=== PATIENT | female | born 1985 | race Caucasian/White ===

== ENCOUNTER 2024-08-29 09:32 | Outpatient (CLI) | payer BC, SELFPAY ==
--- NOTE | ~2024-08-29 | XR_ITS ---
Exam: Abdomen 1V HISTORY: Bilateral kidney stones COMPARISON: None. TECHNIQUE: Supine images of the abdomen FINDINGS: Bowel gas pattern is non-obstructive. There is no free air or deep sulci. Fecal stasis is detected within the colon, precluding adequate evaluation of underlying renal shadows . Lung bases are unremarkable. Bones and remaining soft tissues are unremarkable. IMPRESSION: Nonspecific, nonobstructive bowel gas pattern with fecal stasis projecting over the bilateral kidneys . Reviewed, dictated and finalized at location A. IMPRESSION: Nonspecific, nonobstructive bowel gas pattern with fecal stasis projecting over the bilateral kidneys.
== END 2024-08-29 09:33 | disposition home or self-care (01) ==
PROVIDERS: PCP Urology; Visit Provider Urology
DX: N20.0 Calculus of kidney (principal)
CPT/HCPCS: 74018

== ENCOUNTER 2024-09-15 00:22 | Day surgery (SDC) | payer BC, SELFPAY ==
[2024-09-05 09:31] VITALS: BMI 24.2
--- NOTE | 2024-09-05 09:36 | PC.NURSE ---
Report to the Outpatient Waiting Room, entrance under the green pavilion located off [facility], at time _0830 on date 09/15/24. Planned Procedure Time: 1030.? Time changes happen often and if your time is changed the preop area will call you the afternoon before. - You and your visitor will be asked to self-screen and do not enter if you have any COVID symptoms. Please call surgeon if you need to reschedule. - A mask is optional within the hospital at this time. Patients may have clear liquids (water, carbonated beverages, clear teas, apple juice) until 3 hours prior to surgery with a maximum of 20 ounces. - No food from midnight until time of surgery and no smoking, or chewing tobacco (or any form of nicotine). No chewing gum, candy or mints. - Infants may have breast milk until 4 hours before surgery, infant formula 6 hours prior to surgery. - Children will be allowed to drink immediately following surgery.? If applicable, please bring a bottle or sippy cup to assist with drinking. Juice, water, soda, and popsicles are readily available.? For infants on formula, please bring formula the day of surgery.? Pacifiers are allowed. Take only the following medications with a SIP of water on the morning of surgery: _NONE DO NOT STOP ANY OF YOUR OTHER PRESCRIPTION MEDICATIONS PRIOR TO SURGERY EXCEPT THE FOLLOWING Hold all vitamins and supplements for 3 days per anesthesiologist. Medications to discontinue per physician Date to take last dose Please no make-up, nail [place] citizen, hairspray, perfume, deodorant, or body powder the day of surgery.? No jewelry (including any body piercings) or valuables the day of surgery, leave them at home.? Please take a shower or bath the night before, or the morning of, surgery with an antibacterial soap.? Wear comfortable, loose fitting clothing.? Children are encouraged to wear pajamas. - Jewelry must be removed prior to entering the operating room.? Rings and piercings that are not removed may be cut off. - The hospital will not accept responsibility for valuables.? - Please leave all valuables, including medications, at home the day of surgery. If you are going home after surgery, a licensed auto [place] driver must drive you home.? - NO public transportation without another adult if you receive anesthesia. - We recommend that an adult stay with you for 24 hours following discharge. - We also recommend that you do not drive, make important decision, drink alcoholic beverages, or take any drugs that were not prescribed by your health care provider for at least 24 hours after your discharge time. For Pediatric surgeries, we recommend two adults accompany the child home. Follow any additional instructions given to you from your surgeon. Telephone instructions given to _GAMALIEL___and asked if any additional questions and then verbalized understanding. Patient advised to call surgeon office or pre surgery nurse liaison [phone] if any additional questions.
[2024-09-15] VITALS (7 sets, daily range): BP systolic 101–111; BP diastolic 61–76; PULSE 65–91; RESP 16–22; TEMP 36.3–36.8; O2SAT 97–99; BMI 26.4
--- NOTE | ~2024-09-15 | XR_ITS ---
Exam: Abdomen 1V HISTORY: ESWL COMPARISON: 08/29/2024 oh TECHNIQUE: Supine images of the abdomen FINDINGS: Bowel gas pattern is non-obstructive. There is no free air or deep sulci. Scattered 2 and 3 mm calculi projecting over the bilateral kidneys. Fecal stasis within the cecum and descending colon, precluding adequate evaluation. Lung bases are unremarkable. Bones and soft tissues are unremarkable. IMPRESSION: Nonspecific, nonobstructive bowel gas pattern. Scattered 2 and 3 mm calculi projecting over the bilateral kidneys with detailed evaluation limited s econdary to overlying fecal stasis. Reviewed, dictated and finalized at location A. IMPRESSION: Nonspecific, nonobstructive bowel gas pattern. Scattered 2 and 3 mm calculi projecting over the bilateral kidneys with detaile d evaluation limited secondary to overlying fecal stasis.
--- OUTSIDE RECORDS SUMMARY | 2024-09-15 00:25 | XMS_ITS | Data Portability ---
Author Organization [employer] , [facility] Address [address] [place] [address] Assessment No assessment recorded. Plan of Treatment Reminders Order Date Submit Date Provider Last Modified By Organization Details Last Modified Time Details Appointments None record ed. Lab None record ed. Referral None record ed. Procedures None record ed. Surgeries None record ed. Imaging None record ed. Medication Orders None record ed. Patient TargetsNo targets recorded. Patient Instructions Encounter Date Encounter Id Patient Instructions Last Modified By Organization Details Last Modified Time 12/10/2022 [id number] A healthy lifestyle: care instructions [email or web address] Not available 12/10/2022 15:30:14 substance use disorder: care instructions [email or web address] Not available 12/10/2022 15:30:14 tobacco cessation [email or web address] Not availab le 12/10/2022 15:30:14 Following the [employer] Food Guide: Care Instructions [email or web address] Not available 12/10/2022 15:30:14 exercise program : getting started [email or web address] Not available 12/10/2022 15:30:14 Reason for Referral None Reported. Problems No Known Problems Procedures Surgical History Date Name Laterality Status Provider Name and Address Organization Details Recorded Time 11/25/2020 Date of Last Pap Smear completed Maria L Burton [employer] [facility] 12/08/2022 16:57:47 Imaging Results None recorded. Procedure Notes None recorded. Medical Equipment None Reported. Allergies Allergen ID Allergen Name Allergen Category Reaction Reaction Severity Criticality Documentation Date Start Date Code Code System Note Provider Name and Address Organization Details Recorded Time 526300 Product containin g penicilli n (product) medicatio n Not available Not available Not available 03/21/20212017 83660 8001 SNOMED Sever ity: Moder ate; Not Available Not Available Not Available 209219 Substance with sulfonami de structure and antibacte rial mechanism of action (substanc e) medicatio n Not available Not available Not available 03/21/20212017 91620 8003 SNOMED Sever ity: Moder ate; Not Available Not Available Not Available 691295 Medicinal product containin g cephalosp guy and acting as antibacte rial agent (product) medicatio n Not available Not available Not available 03/21/20212017 16667 9009 SNOMED Sever ity: Moder ate; Not Available Not Available Not Available Medications Name Sig Start Date Stop Date Status Note LastModified by Organization Details LastModified Time Multivitamin s 2017 active Multivitamin s Allow Substitution : True Refill Denied: No Refill DateOccurred : 11/09/2017 Not Available Not Available Not Available Vitals Date Recorded Body height Body mass index (BMI) Body weight Systolic blood pressure Diastolic blood pressure Provider Name and Address Organization Details Last Updated DateTime 12/10/2022 157.48 cm 25.2 kg/m2 28294.75 g 110 mm[Hg] 72 mm[Hg] Maria L Burton [employer] [facility] 15:15:38 Social History Question Answer Notes LastModified by Organizat ion Details LastModified Time Tobacco Smoking Status Never Smoker Maria L finney, [employer] [facility] 12/10/2022 15:26:06 What Is Your Level Of Alcohol Consumption? Occasional [email or web address] Information not available 12/10/2022 How Many Years Have You Consumed Alcohol? 18 [email or web address] Information not available 12/10/2022 What Type Of Diet Are You Following? REGULAR [email or web address] Information not available 12/10/2022 Do You Or Have You Ever Used E-cigarettes Or Vape? Never Used Electronic Cigarettes [email or web address] Information not available 12/10/2022 How Many Children Do You Have? 2 [email or web address] Information not available 12/10/2022 What Is Your Relationship Status? [email or web address] Information not available 12/08/2022 Are You Sexually Active? Yes [email or web address] Information not available 12/08/2022 Sex: Unknown Functional Status Question Answer Note LastModified by Organization D etails LastModified Time What is your exercise level? Moderate [email or web address] Information not available 12/10/2022 Mental Status None recorded. Family History Relationship Description Onset Age of this Age Resolved Age Notes LastModified by Organization Details LastModified Time Father Renal cell carcinoma Not available 12/10 15:25:59 Father Malignant neoplastic disease [email or web address] Not available 12/10 15:25:59 Father Hypertensive disorder [email or web address] Not available 12/10 15:25:59 Maternal Grandmother Cerebrovascu lar accident [email or web address] Not available 15:25:59 Medical History Condition Response High Blood Pressure N Cytomegalovirus N Hyperthyroidism N MRSA N Blood Transfusion N Depression N Incontinence N Anxiety Disorder N Autoimmune disease N Arthritis N Polycystic Ovarian Syndrome N Hematuria N Varicosities N Stroke N Seasonal allergies N Crohn's Disease N Alzheimer's/Dementia N COPD/Emphysema N History of Abnormal Pap N Fibromyalgia N Kidney Infection N Kidney Disease N Gallbladder disease N Von Willebrand disease N Eating Disorder N Diabetes Mellitus (non-insulin dependent ) N Ovarian Problems N Frequent Urinary Tract infections N Osteopenia N GERD (reflux) N Diabetes (insulin dependent) N Heart Attack N Asthma N Endometrial Cancer N Hepatitis N Pulmonary Embolism N RPR N Chicken Pox N Other Cancer N Colon Cancer N Herpes (HSV) N Breast Cancer N Lung Cancer N Hypothyroidism N Panic Attacks N Neurological Disorder N Deep Vein Thrombosis N Shingles N Tuberculosis/Positive PPD N Cervical Cancer N Chlamydia N Endometriosis N HPV/Genital Warts N IBS (Irritable Bowel Syndrome) N High Cholesterol N Liver Disease N Ulcer N HIV N Sickle Cell Disease/Trait N ADD/ADHD N Anemia N Multiple Sclerosis N Gonorrhea N Headaches/migraines N Ovarian Cancer N Seizures/Epilepsy N Fibroids N Lupus N Rubella N Blood Clotting Disorder N Bipolar Disorder N Diabetes Mellitus (during ) N Ulcerative Colitis N Heart Disease N Osteoporosis N Gynecological History Statement/Question Response Flow Moderate Frequency of Cycle (Q days) 28 Date of LMP 11/25/2022 Date of Last Pap Smear 11/25/2020 Duration of Flow (days) 6 Most Recent Mammogram Current Control Method Partner Vas ectomy Age at Menarche 10 Obstetrics History GPAL:G 2 P 2 0 0 2 Type Value Full Term 2 Living 2 Total 2 Past Encounters Encounter ID Performer Location Encounter Start Date Encounter Closed Date Diagnosis/Indication Diagnosis SNOMED-CT Code Diagnosis ICD10 Code Diagnosis Note [id number] LASHONDA Briones [facility] [address] [place] [address] 12/10/2022 15:12:36 12/10/2022 15:36:54 Gynecologic examination 59403487 Z01.419 37y.o. here for annual exam- Pap 11/25/20 Neg/HPV cotesting Discussed natural course of HPV infection, ASCCP guidelines . - Mammo at age 38, no increased risk -diet and exercise reviewed - RTO for annual or PRN Depression screening 171 340848 Z13.31 PHQ9: Negative. Pt educated on normal scoring. No further management needed. Health Concerns Section Related Observation LastModified by Organization Detai ls LastModified Time None Recorded Concern Status LastModified by Organization Details LastModified Time None Recorded Advance Directives Directive None Recorded Payers Encounter Date Sequence Insurance Name Policy Number Policy Noel Covered Member ID Noel Member ID Guarantor Name 12/10/2022 1 [place] [id number] Gerald Pearce [id number] Yola Pearce Notes Date Note Type Note Provider Name and Address Organization Details Recorded Time 12/10/2022 text/html Annual GYNReport ed bypatient.Menstrua l cycle:Normal menses Urinary symptoms:No hematuria; No incontinence Vulva:No genital lesion Vagina:Normal vaginal discharge Breast:No breast pain; No breast lump; No nipple discharge Sexual complaints:No sexual complaints; No pain during intercourse; Normal libido Menopausal Symptoms:No menopausal symptoms; Normal vaginal lubrication Psychological symptoms:No depression; No anxiety; No PMDD Yola is here for her AEXHer partner has had a vasectomyHer last pap was 11/25/20 Neg/HPV Neg LASHONDA Briones [address] [facility], [place], [address], [facility] [employer] [facility] 12/10/2022 15:42:58 OBGyn Episode No OBEpisode recorded.
--- OUTSIDE RECORDS SUMMARY | 2024-09-15 00:25 | XMS_ITS | Data Portability ---
Author Organization [place] - [facility] Address [address] [place] [id number] Care Team Providers Care Data Processing Operator Name Role Phone KATERINE, IZABEL Primary Care Provider MAEGAN OROZCO Websphere Consultant DIANN ALSTON Urologist Assessment No assessment recorded. Plan of Treatment Reminders Order Date Submit Date Provider Last Modified By Organization Details Last Modified Time Details Appointments None recorded. Lab hepatitis panel (A+B+C), acute, serum 2024 025 [facility], [address] [place] [address], [id number], 10:14:21 lipid panel, serum 2024 025 [facility], [address] [place] [address], [id number], 11:07:21 CBC w/ auto diff 2024 025 [facility], [address] [place] [address], [id number], 09:27:53 CMP, serum or plasma 2024 025 [facility], [address] [place] [address], [id number], 10:55:13 Referral None recorded. Procedures None recorded. Surgeries None recorded. Imaging MAMMO, screening, bilateral 2024 025 [facility], [address] [place] [address] [address], [place], [address], 09:26:43 US, abdomen, complete 2024 025 [email or web address], [address], [address], [place], [address], 14:55:29 Medication Orders None recorded. Patient TargetsNo targets recorded. Patient InstructionsNo instructions recorded. Reason for Referral None Reported. Results Created Date Observation Date Name Description Value Unit Range Abnormal Flag Note LastModifiedBy Organization Detail LastModifiedTime 09/08/1909/07/2024 CBC WITH AUTOM ATED DIFF WBC 6.0 10 4.0-10 .0 Not Available [facility] [address] [place] [address], [id number], 09/07/2024 09:27:52 09/08/1909/07/2024 CBC WITH AUTOM ATED DIFF RBC 4.55 10 3.90-5 .22 Not Available [facility] [address] [place] [address], [id number], 09/07/2024 09:27:52 09/08/1909/07/2024 CBC WITH AUTOM ATED DIFF HGB 13.3 g/dL 11.2-1 5.7 Not Available [facility] [address] [place] [address], [id number], 09/07/2024 09:27:52 09/08/1909/07/2024 CBC WITH AUTOM ATED DIFF HCT 41.9 % 34.1-4 4.9 Not Available [facility] [address] [place] [address], [id number], 09/07/2024 09:27:52 09/08/1909/07/2024 CBC WITH AUTOM ATED DIFF MCV 92.1 fL 82.0-9 9.0 Not Available [facility] [address] [place] [address], [id number], 09/07/2024 09:27:52 09/08/1909/07/2024 CBC WITH AUTOM ATED DIFF MCH 29.2 pg 29.0-3 4.5 Not Available [facility] [address] [place] [address], [id number], 09/07/2024 09:27:52 09/08/19 25 09/07/2024 CBC WITH AUTOM ATED DIFF MCHC 31.7 g/dL 32.5-3 5.5 low Not Available [facility] [address] [place] [address], [id number], 09/07/2024 09:27:52 09/08/19 25 09/07/2024 CBC WITH AUTOM ATED DIFF RDW 12.9 11.5-1 4.5 Not Available [facility] [address] [place] [address], [id number], 09/07/2024 09:27:52 09/08/19 25 09/07/2024 CBC WITH AUTOM ATED DIFF platelet 361 10 180-37 0 Not Available [facility] [address] [place] [address], [id number], 09/07/2024 09:27:52 09/08/19 25 09/07/2024 CBC WITH AUTOM ATED DIFF MPV 9.60 fL 9.0-12 .4 Not Available [facility] [address] [place] [address], [id number], 09/07/2024 09:27:52 09/08/1909/07/2024 CBC WITH AUTOM ATED DIFF michael% 66.6 % 34.0-7 1.1 Not Available [facility] [address] [place] [address], [id number], 09/07/2024 09:27:52 09/08/19 25 09/07/2024 CBC WITH AUTOM ATED DIFF lym% 21.4 % 19-52 Not Available [facility] [address] [place] [address], [id number], 09/07/2024 09:27:52 09/08/19 25 09/07/2024 CBC WITH AUTOM ATED DIFF mon% 7.50 % 5-13 Not Available [facility] [address] [place] [address], [address], 09/07/2024 09:27:52 09/08/1909/07/2024 CBC WITH AUTOM ATED DIFF eos% 3.50 % 0-6 Not Available [address], [address], 09/07/2024 09:27:52 09/08/19 25 09/07/2024 CBC WITH AUTOM ATED DIFF bas% 0.80 % 0-2 Not Available [address], [address], 09/07/2024 09:27:52 09/08/1909/07/2024 CBC WITH AUTOM ATED DIFF Ig% 0.2 0-1.0 Not Available [address], [address], 09/07/2024 09:27:52 09/08/1909/07/2024 CBC WITH AUTOM ATED DIFF michael# 4.01 10 1.5-7 Not Available [address], [address], 09/07/2024 09:27:52 09/08/1909/07/2024 CBC WITH AUTOM ATED DIFF lym# 1.3 10 1.18-4 .00 Not Available [address], [address], 09/07/2024 09:27:52 09/08/1909/07/2024 CBC WITH AUTOM ATED DIFF mon# 0.5 10 0.00-0 .90 Not Available [address], [address], 09/07/2024 09:27:52 09/08/1909/07/2024 CBC WITH AUTOM ATED DIFF eos# 0.2 10 0.00-0 .60 Not Available [facility] [address] [place] [address], [id number], 09/07/2024 09:27:52 09/08/1909/07/2024 CBC WITH AUTOM ATED DIFF bas# 0.1 10 0.00-0 .10 Not Available [address], [address], 09/07/2024 09:27:52 09/08/1909/07/2024 CBC WITH AUTOM ATED DIFF Ig# 0.01 0-0.05 Not Available [address], [address], 09/07/2024 09:27:52 09/08/1909/07/2024 PTT APTT 25.6 secs 24.0-3 2.80 Not Available [address], [address], 09/07/2024 09:45:55 09/08/1909/07/2024 PROTI ME protime (PT) 9.8 secs 9.0-11 .5 Not Available [address], [address], 09/07/2024 09:45:56 09/08/1909/07/2024 PROTI ME INR 1.0 MICHELLE L RANGE FOR INR < OR = TO 1.0 (BRIAN ENTS NOT ON ANTIC OAGUL ANT THERA PY). INR THERA PEUTI C RANGE 2.0 - 3.0 PREVE NTION AND TREAT MENT OF DVT 2.5 - 3.5 PREVE NTION OF RECUR RENT [place], OR POST CARDI AC VALVE REPLA CEMEN T. Not Available [address], [address], 09/07/2024 09:45:56 09/08/1909/07/2024 LIPID PNL cholesterol 197 mg/dL 120-20 0 Not Available [address], [address], 09/07/2024 10:55:06 09/08/19 25 09/07/2024 LIPID PNL triglyceride s 108 mg/dL 0-150. 0 Not Available [facility] [address] [place] [address], [address], 09/07/2024 10:55:06 09/08/19 25 09/07/2024 LIPID PNL HDL cholesterol 86 mg/dL 40-60 high Not Available [facility] [address] [place] [address], [id number], 09/07/2024 10:55:06 09/08/19 25 09/07/2024 LIPID PNL LDL 89.4 mg/dL 0-130 Not Available [facility] [address] [place] [address], [address], 09/07/2024 10:55:06 09/08/19 25 09/07/2024 COMP METAB OLIC PNL glucose 97 mg/dL 74-100 Not Available [facility] [address] [place] [address], [address], 09/07/2024 10:55:13 09/08/19 25 09/07/2024 COMP METAB OLIC PNL BUN 18 mg/dL 7-17 high Not Available [facility] [address] [place] [address], [address], 09/07/2024 10:55:13 09/08/19 25 09/07/2024 COMP METAB OLIC PNL sodium 137 mmol/ L 136-14 5 Not Available [facility] [address] [place] [address], [address], 09/07/2024 10:55:13 09/08/19 25 09/07/2024 COMP METAB OLIC PNL K 4.4 mmol/ L 3.5-5. 1 Not Available [facility] [address] [place] [address], [address], 09/07/2024 10:55:13 09/08/19 25 09/07/2024 COMP METAB OLIC PNL chloride 102 mmol/ L 98-107 Not Available [facility] [address], [place], [address], 09/07/2024 10:55:13 09/08/19 25 09/07/2024 COMP METAB OLIC PNL tot CO2 27 mmol/ L 22-30 Not Available [facility] [address] [place] [address], [place], [address], 09/07/2024 10:55:13 09/08/19 25 09/07/2024 COMP METAB OLIC PNL calcium 9.6 mg/dL 8.6-10 .3 Not Available [facility] [address] [place] [address], [place], [address], 09/07/2024 10:55:13 09/08/19 25 09/07/2024 COMP METAB OLIC PNL creatinine 0.9 mg/dL 0.52-1 .04 Not Available [facility] [address] [place] [address], [place], [address], 09/07/2024 10:55:13 09/08/19 25 09/07/2024 COMP METAB OLIC PNL alkaline phos 48 U/L 38-126 Not Available [facility] [address] [place] [address], [place], [address], 09/07/2024 10:55:13 09/08/19 25 09/07/2024 COMP METAB OLIC PNL AST (SGOT) 26 U/L 14-36 Not Available [facility] [address] [place] [address], [place], [address], 09/07/2024 10:55:13 09/08/19 25 09/07/2024 COMP METAB OLIC PNL albumin 4.9 g/dL 3.3-5. 0 Not Available [facility] [address] [place] [address], [place], [address], 09/07/2024 10:55:13 09/08/19 25 09/07/2024 COMP METAB OLIC PNL globulin 3.3 2.0-4. 8 Not Available [facility] [address] [place] [address], [place], [address], 09/07/2024 10:55:13 09/08/19 25 09/07/2024 COMP METAB OLIC PNL total protein 8.2 g/dL 6.3-8. 2 Not Available [facility] [address] [place] [address], [address], 09/07/2024 10:55:13 09/08/19 25 09/07/2024 COMP METAB OLIC PNL A/G ratio 1.5 0.7-3. 5 Not Available [facility] [address] [place] [address], [address], 09/07/2024 10:55:13 09/08/19 25 09/07/2024 COMP METAB OLIC PNL ALT (SGPT) 16 U/L 0-35 Not Available [facility] [address] [place] [address], [address], 09/07/2024 10:55:13 09/08/19 25 09/07/2024 COMP METAB OLIC PNL total bilirubin 0.5 mg/dL 0.2-1. 3 Not Available [facility] [address] [place] [address], 89[address], 09/07/2024 10:55:13 09/08/19 25 09/07/2024 COMP METAB OLIC PNL GFR >60 60- Refer ence Range : [place] ge GFR Healt hy Adult : >60 mL/mi n/1.7 3 m2 Chron ic Kidne y Disea se: 15-60 mL/mi n/1.7 3 m2 Kidne y Failu re: <15/m L/min /1.73 m2 www.n iddk. nih.g ov MDRD study equat ion hasn' t been valid ated in child tim <18 yrs of age, pregn ant women , the elder ly >85 yrs of age, or in some racia l or ethni c subgr oups, suc as Hispa nics. Outsi de the valid ated bipin eters , estim ated GFR is less accur ate requi ring clini larry judgm ent on a case by case basis . Clini larry inter preta tion for other races and ages must be made by the clini roldan . Futhe rmore , any of th e limit ation s with the use of serum creat inine relat ed to nutri ignacio l statu s o r medic ation usage hasn' t accou nted for the MDRD Study equat ion. For perso ns < 18 yrs of age, a pedia tric GFR calcu lator can be locat ed on the [facility] websi te: https ://[place] w.tia aroray.o rg/pr ofess ional s/kdo qi/gf r_cal culat or Not Available [facility] [address] [place] [address], [id number], 09/07/2024 10:55:13 09/08/1909/07/2024 COMP METAB OLIC PNL agap 8.2 mmol/ L 5.0-19 .0 Not Available [facility] [address] [place] [address], [address], 09/07/2024 10:55:13 09/08/19 25 09/08/2024 PARAT HYROI D HORMO NE (PTH) INT PTH, intact 27 pg/mL 15-65 Not Available [facility] [address] [place] [address], [address], 09/08/2024 10:11:32 Result Notes None recorded. Problems Name Problem SNOMED Code Status Onset Date Resolution Date Notes Provider Name and Address Organization Details Recorded Time Hepatomegal y 36741396 Active 2024 FRANCHESCA SIERRA [address] [place], [address], [facility] 5 09:22:17 Recurrent kidney stone 4569260048334 102 Active 2024 FRANCHESCA SIERRA [address] [place], [address], [facility] 5 09:27:41 Problem Notes None recorded. Medical Equipment None Reported. Allergies No known drug allergies Medications Name Sig Start Date Stop Date Status Note LastModified by Organization Details LastModified Time azithromyci n 250 mg tablet TAKE 2 TABLETS BY MOUTH TODAY, THEN TAKE 1 TABLET DAILY FOR 4 DAYS DIRECTED 09/06 completed Not Available Not Available Not Available benzonatate 200 mg capsule TAKE 1 ORAL CAPSULE 3 TIMES A DAY NEEDED FOR COUGH 09/06 completed Not Available Not Available Not Available hydrocodone 5 mg-acetamin ophen 325 mg tablet TAKE 1-2 TABLETS BY MOUTH EVERY 6 HOURS NEEDED 09/06 completed Not Available Not Available Not Available ondansetron HCl 4 mg tablet TAKE 1 TABLET BY MOUTH EVERY 4 HOURS NEEDED 09/06 completed Not Available Not Available Not Available ciprofloxac in 500 mg tablet TAKE 1 TABLET BY MOUTH EVERY 12 HOURS FOR 7 DAYS 09/06 completed Not Available Not Available Not Available ketorolac 10 mg tablet TAKE 1 TABLET BY MOUTH EVERY 6 HOURS NEEDED 09/06 completed Not Available Not Available Not Available tamsulosin 0.4 mg capsule TAKE 1 CAPSULE BY MOUTH EVERY DAY 1/2 HOUR FOLLOWING THE SAME MEAL EACH DAY 09/06 completed Not Available Not Available Not Available ondansetron 4 mg disintegrat ing tablet DISSOLVE ONE TABLET BY MOUTH EVERY 8 HOURS NEEDED FOR NAUSEA/VO MITTING 09/06 completed Not Available Not Available Not Available Vitals Date Recorded Body weight Body mass index (BMI) Body height Body temperature Heart rate Oxygen saturation Oxygen saturation in Arterial blood by Pulse oximetry Systolic blood pressure Diastolic blood pressure Provider Name and Address Organization Details Last Updated DateTime 86137.2 6 g 26.4 kg/m2 160.02 cm 97.3 [degF] 76 /min 98 % 98 % 110 mm[Hg] 70 mm[Hg] Janet Piper [facility] 09:09:12 Social History Question Answer Notes LastModified by Organizat ion Details LastModified Time Tobacco Smoking Status Never Smoker Janet Piper [facility] 09/06/2024 09:10:23 What Is Your Level Of Alcohol Consumption? Occasional Information not available 09/06/2024 What Is Your Level Of Caffeine Consumption? Moderate Information not available 09/06/2024 In The 14 Days Before Symptom Onset, Have You Had Close Contact With A Laboratory-confirm ed COVID-19 While That Case Was Ill? No Information n ot available 09/06/2024 In The 14 Days Before Symptom Onset, Have You Had Close Contact With A Person Who Is Under Investigation For COVID-19 While That Person Was Ill? No Information not available 09/06/2024 Are You Currently Employed? Yes Information not available 09/06/2024 What Type Of Diet Are You Following? REGULAR Information n ot available 09/06/2024 What Is The Fluoride Status Of Your Home? Unknown Information not available 09/06/2024 Do You Use Insect Repellent Routinely? Yes Information not available 09/06/2024 What Was The Date Of Your Most Recent Tobacco Screening? 09/06/2024 Information not available 09/06/2024 Have You Ever Been Counseled For Unhealthy Alcohol Use? No Information not available 09/06/2024 Do You Have Any Pets? Yes Information not available 09/06/2024 What Is Your Relationship Status? Information not available 09/06/2024 Do You Have Smoke And Carbon Monoxide Detectors In Your Home? Yes Information not available 09/06/2024 Are You Passively Exposed To Smoke? No Information no t available 09/06/2024 Are There Any Smokers In Your House? No Information not available 09/06/2024 Do You Participate In Social Media? Yes Information not available 09/06/2024 Do You Use Any Illicit Or Recreational Drugs? No Information not available 09/06/2024 Do You Use Sunscreen Routinely? Yes Information not available 09/06/2024 Has Tobacco Cessation Counseling Been Provided? No Information not available 09/06/2024 Have You Recently Traveled Abroad? No Information not available 09/06/2024 Do You Have Any Dietary Restrictions? No Information not available 09/06/2024 Do You Or Have You Ever Used Any Other Forms Of Tobacco Or Nicotine? No Information not available 09/06/2024 How Many Days In The Past Year Have You Consumed 4 Or More Drinks? 0 [email or web address] Information not available 09/06/2024 Sex: Unknown Functional Status Question Answer Note LastModified by Organizat ion Details LastModified Time What is your exercise level? Occasional Information not available 09/06/2024 Mental Status None recorded. Family History Relationship Description Onset Age of this Age Resolved Age Notes LastModified by Organization Details LastModified Time Father Malignant tumor of kidney Not available 01/2025 09:10:01 Medical History No medical history recorded. Gynecological History Statement/Question Response Menses Monthly Y Current Control Method None Date of Last Mammogram Date of LMP 08/26/2024 Obstetrics History GPAL:G 2 P 0 0 0 0 Immunizations Vaccine Type Date Status Note Provider Nam e and Address Organization Details Recorded Time Tdap 03/15/2012 completed FRANCHESCA SIERRA [facility] [place], [address], [facility] 09/06/2024 09:25:44 Past Encounters Encounter ID Performer Location Encounter Start Date Encounter Closed Date Diagnosis/Indication Diagnosis SNOMED-CT Code Diagnosis ICD10 Code Diagnosis Note [id number] FRANCHESCA SIERRA [facility] [address] [address] 09/06/2024 08:49:26 09/06/2024 09:25:16 Adult health examination 952548098 Z00.00 Encouraged healthy diet and exercise. Check labs. Schedule pap with gynecologi st. Update mammogram. Declines Tdap today. Hepatomegaly 88831884 R1 6.[address] scan. Check CMP and hepatitis panel and abdominal complete US. Screening mammography 24 628145 Z12.31 Recurrent kidney stone 7574058384 539092 N20.0 Following with urology. Scheduled for lithotrips y next week and undergoing stone analysis. Body mass index 25-29 - overweight 112708102 Z68.26 Health Concerns Section Related Observation LastModified by Organization Detai ls LastModified Time None Recorded Concern Status LastModified by Organization Details LastModified Time None Recorded Advance Directives Directive None Recorded Payers Encounter Date Sequence Insurance Name Policy Number Policy Noel Covered Member ID Noel Member ID Guarantor Name 09/06/2024 1 [employer] [id number] Gerald Pearce [id number] Yola Pearce Notes Date Note Type Note Provider Name and Address Organization Details Recorded Time 09/06/2024 text/html 38 year old alexis le here today to establish care and for ER follow up. Went to ER on 08/28/24 and diagnosed with kidney stone. Did pass this stone and took it to urologist and getting tested. Off flomax and Peculiar. Has some up in kidney so having lithotripsy next Wednesday for those.Dr. [facility].She was also noted to have hepatomegaly on CT scan and would like to discuss today.No abdominal pain. No nausea, vomiting, or diarrhea. 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 Works from home for [employer].Works out ever day, HIT, cardioTries to eat pretty healthy.Has 16 year old and 12 year old. FRANCHESCA SIERRA [address], [place], [address], [place] [facility] 09/06/2024 09:28:51 OBGyn Episode No OBEpisode recorded.
--- OUTSIDE RECORDS SUMMARY | 2024-09-15 00:25 | XMS_ITS | Data Portability ---
Author Organization [facility] [place] [facility] Address [address] [facility] [address] Assessment Encounter Date Assessment Date Assessment LastModified by Organization Details LastModified Time 03/10/2016 03/10/2016 Schedule punch biopsy [email or web address] Not available 03/10/2016 11:13:37 Plan of Treatment Reminders Order Date Submit Date Provider Last Modified By Organization Details Last Modified Time Details Appointments None recorded. Lab pathology study - inferior to the right breast line 2015 016 [facility], [address] [place] [address], [address], [place], [address], 6 04:29:59 Referral None recorded. Procedures None recorded. Surgeries None recorded. Imaging None recorded. Medication Orders Singulair 10 mg tablet 2015 016 [email or web address] [facility], [address], [place], [id number], 6 14:38:34 Patient TargetsNo targets recorded. Patient Instructions Encounter Date Encounter Id Patient Instructions Last Modified By Organization Details Last Modified Time 03/10/2016 [id number] seasonal allergies: care instructions [email or web address] Not available 03/11/2016 14:38:34 Reason for Referral None Reported. Results Created Date Observation Date Name Description Value Unit Range Abnormal Flag Note LastModifiedBy Organization Detail LastModifiedTime 03/23/20 16 04/02/2016 patho logy study . COMMEN T MATER IAL SUBMI TTED: . INFER IOR TO RIGHT BREAS T LINE Not Available [facility] ([facility]) [address] [facility], [place], [address], 04/02/2016 09:25:27 03/23/20 16 04/02/2016 patho logy study . COMMKIET T CLINI MARCELO PROVI DED ICD-1 0: D23.9 Not Available [facility] ([facility]) [address] [facility], [place], [address], 04/02/2016 09:25:27 03/23/20 16 04/02/2016 patho logy study . COMMEN T CLINI ANA MARIA HISTO RY: . INFER IOR TO THE RIGHT BREAS T LINE Not Available [facility] ([facility]) [address] [facility], [place], [address], 04/02/2016 09:25:27 03/23/20 16 04/02/2016 patho logy study . COMMKIET T DIAGN OSIS: DERMA OFIBR NAINA. TMZ/2015 Not Available [facility] ([facility]) [address] [facility], [place], [address], 04/02/2016 09:25:27 03/23/20 16 04/02/2016 patho logy study . COMMKIET T FRANNIE TRAN D: . LIZ PÉREZ MD, DERMA TOPAT HOLOG IST Not Available [facility] ([facility]) [address] [facility], [place], [address], 04/02/2016 09:25:27 03/23/20 16 04/02/2016 patho logy study . PALOMA Andrea GROSS DESCR IPTIO N: . 1 CONTA INER, FORMA NOÉ ILLEScott , LABEL ED WITH PATIE NT IDENT IFICA TION. INFER IOR TO RIGHT BREAS T LINE: 1 PUNCH BIOPS Y OF ROACH-Y ELLOW SKIN MEASU RING 0.4 X 0.4 X 0.5 CM. THE SURGI ANA MARIA PEBBLES N IS INKED GREEN AND THE SPECI MEN IS BISEC TAYLOR. THE SPECI MEN IS SUBMI TTED IN CASSE TTE(S ) A. /LMS LMS/L MS Not Available [facility] ([facility]) [address] [place], [address], 04/02/2016 09:25:27 03/23/20 16 04/02/2016 patho logy study . PALOMA T PATHO LOGIS T PROVI DED ICD-1 0: D24.1 Not Available [facility] ([facility]) [address] [place], [address], 04/02/2016 09:25:27 03/23/20 16 04/02/2016 patho logy study . PALOMA Andrea CPT . [address] 1 Not Available [facility] ([facility]) [address] [place], [address], 04/02/2016 09:25:27 Result Notes None recorded. Problems Name Problem SNOMED Code Status Onset Date Resolution Date Notes Provider Name and Address Organization Details Recorded Time Dermatofibrom a 420900755 Active Anni Rashida null, [place] - [facility] 6 14:28:55 Seasonal allergy 645633874 Active Anni Rashida null, [place] - [facility] 6 14:28:55 Solitary cyst of breast 872229287 Active 2013 Not Available [facility] 7 00:43:48 Headache 97205786 Active 2011 Not Available [facility] 7 00:43:48 Acute sinusitis 64325532 Active 2015 Not Available [facility] 7 00:43:48 Notes:03/30/2012: *Denies an y medical problems Problem Notes None recorded. Procedures Surgical History Date Name Laterality Status Provider Name and Address Organization Details Recorded Time 03/20/2016 Punch Biopsy completed Anni Rashida [facility] 03/23/2016 15:53:45 Imaging Results None recorded. Procedure Notes None recorded. Medical Equipment None Reported. Allergies Allergen ID Allergen Name Allergen Category Reaction Reaction Severity Criticality Documentation Date Start Date Code Code System Note Provider Name and Address Organization Details Recorded Time 616426 Product containin g penicilli n (product) medicatio n hives Not available Not available 04/06/20172011 70783 8001 SNOMED React ion: hives ; Not Available Not Available Not Available 51970 penicilli n V Not available Not available Not available Not available 03/10/2016 7984 RxNorm Not Available Not Available Not Available 96131 Ceclor medicatio n Not available Not available Not available 03/10/2016 95417 5 RxNorm Not Available Not Available Not Available 63488 Substance with sulfonami de structure and antibacte rial mechanism of action (substanc e) medicatio n Not available Not available Not available 03/10/2016 11314 8003 SNOMED Not Available Not Available Not Available Medications Name Sig Start Date Stop Date Status Note LastModified by Organization Details LastModified Time azithromyci n 250 mg tablet active Not Available Not Available Not Available Cipro 500 mg tablet Cipro 500 mg tablet 1 Tablet(s) PO BID 08/20 completed Not Available Not Available Not Available montelukast 10 mg tablet Take 1 tablet every day by oral route for 30 days. active Not Available Not Available No t Available ibuprofen 600 mg tablet active Not Available Not Available Not Available Tessalon 200 mg capsule Tessalon 200 mg capsule 1 Capsule(s ) PO QID as needed 2015 active Not Available Not Available Not Avai lable Vitals Date Recorded Body height Body weight Body mass index (BMI) Systolic blood pressure Diastolic blood pressure Provider Name and Address Organization Details Last Updated DateTime 03/10/2016 161.29 cm 25716.96 0412 g 23.8 kg/m2 130 mm[Hg] 80 mm[Hg] Leah Heraclio [facility] 6 10:56:19 Date Recorded Body height Body weight Body mass index (BMI) Systolic blood pressure Diastolic blood pressure Provider Name and Address Organization Details Last Updated DateTime 03/20/2016 161.29 cm 58743.15 g 23.9 kg/m2 108 mm[Hg] 68 mm[Hg] Anni Field [place] - [facility] 6 14:26:15 Social History None recorded. Functional Status None recorded. Mental Status None recorded. Family History Nothing Reported. Medical History Condition Response Coronary Artery Disease N Other N Atrial Fibrillation N High Blood Pressure N Thyroid Problems N Kidney or Bladder Problems N Depression N COPD N Blood Clots N GI Problems N Skin Problems N Anemia N Heart Attack ([place]) N Diabetes N Anxiety Disorder N Muscle, Joint, or Bone Problems N Seizures/Epilepsy N Acid Reflux (GERD) N Cancer N Stroke N Allergies N Asthma N High Cholesterol N Hepatitis N Liver Disease N Headaches N Osteoporosis N Heart Failure N Gynecological HistoryNo gynecological history recorded. Obstetrics History GPAL:G 0 P 0 0 0 0 Immunizations Vaccine Type Date Status Note Provider Nam e and Address Organization Details Recorded Time Influenza, split virus, quadrivalent, preservative 9 completed NEVILLE Clark, [facility] 03/01/2019 12:49:21 Influenza, split virus, quadrivalent, PF 6 completed Anni finney [place] - [facility] 03/25/2016 14:29:24 Td (adult), 2 Lf tetanus toxoid, preservative free, adsorbed 8 completed Not Available [facility] 04/06/2017 10:17:31 Influenza, split virus, trivalent, preservative 5 completed Not Available [facility] 07/01/2019 02:11:45 Past Encounters Encounter ID Performer Location Encounter Start Date Encounter Closed Date Diagnosis/Indication Diagnosis SNOMED-CT Code Diagnosis ICD10 Code Diagnosis Note [id number] Torrey Pulliam MD [facility] [address] [place] [address] 03/10/2016 10:45:01 03/13/2016 10:30:53 Dermatofibroma 785843378 D23.9 Seasonal allergy 0847345 04 J30.2 [id number] Anni Brody [address] [facility] [place] [address] 03/20/2016 17:04:11 03/26/2016 16:35:49 Dermatofibroma 390512237 D23.9 [id number] Leah Pulliam [facility] [address] [place] [address] 03/30/2016 13:47:04 03/31/2016 20:06:28 Dermatofibroma 610831755 D23.9 Health Concerns Section Related Observation LastModified by Organization Detai ls LastModified Time None Recorded Concern Status LastModified by Organization Details LastModified Time None Recorded Advance Directives Directive None Recorded Payers Encounter Date Sequence Insurance Name Policy Number Policy Noel Covered Member ID Noel Member ID Guarantor Name 03/10/2016 1 [place] [id number] 03/20/2016 1 [place] [id number] [id number] 03/30/2016 1 [place] [id number] [id number] Notes Date Note Type Note Provider Name and Address Organization Details Recorded Time 03/10/2016 text/html Rash/Skin LesionReported bypatient.Location:c hest (under rt breast) Quality:not painful; stable Severity:mild Duration:has noted for >3 months Associated Symptoms:no fever; no nausea; no vomiting Torrey Pulliam MD Attn: [address]ing[address] [place], [address], [facility] 03/11/2016 10:59:38 03/20/2016 text/html patient presents today to have dermatofibroma removed from just right of the nipple line to the right outer Anni Oreillymis finney [place] - [facility] 03/25/2016 14:34:49 OBGyn Episode No OBEpisode recorded.
--- OUTSIDE RECORDS SUMMARY | 2024-09-15 00:25 | XMS_ITS | Clinical Summary ---
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 Name Role Phone Ash Daley MD Primary Care Provider [phone] Social History Tobacco Use Types Packs/Day Years Used Date Smoking Tobacco: Never Assessed Comments Unknown Sex and Gender Information Value Date Recorded Sex Assigned at Not on file Legal Sex Female 6:29 PM CDT Gender Identity Not on file Sexual Orientation Not on file Plan of Treatment Health Maintenance Due Date Last Done Comments Cervical Cancer Screening Pa p Smear (Age 30 to 64) Every 3 Years 1983 Annual Physical 11/04/1986 Hepatitis C 11/04/2001 DTaP, Tdap and Td Vaccines ( 1 - Tdap) 11/04/2002 Hepatitis B Vaccines (1 of 3 - 19+ 3-dose series) 11/04/2002 Cervical Cancer Screening Pa p with HPV Testing (Age 30 to 64) Every 5 Years 11/04/2013 Cervical Cancer Screening with HPV 11/04/2013 Mammogram Screening 2023 COVID-19 Vaccine (2023-2 5 season) 2024 HPV Vaccines Aged Out No longer eligi ble based on patient's age to complete this topic Meningococcal B Vaccine Aged Out No l onger eligible based on patient's age to complete this topic Meningococcal Vaccine Aged Out No kait bharath eligible based on patient's age to complete this topic Pneumococcal Vaccine: Pediat rics (0 to 5 Years) and At-Risk Patients (6 to 49 Years) Aged Out No longer eligible b ased on patient's age to complete this topic RSV Immunizations Under 20 Months Aged Out No longer eligible based on patient's age to complete this topic Care Teams Swimming Pool Cleaner Relationship Specialty Start Date End Date Ash Daley MD [facility] [place] [phone] PCP - General 03/22/12
--- NOTE | 2024-09-15 06:13 | WPDHPUPDATE1 ---
History and Physical Update Update Date/Time: 09/15/24 06:13 History and Physical has been reviewed, including an updated exam of the patient. There are NO changes in the patient's condition. Risks, benefits, and alternatives have been discussed and questions answered. Patient agrees to proceed with procedure.
--- NOTE | 2024-09-15 07:52 | P.PNAN_ITS ---
Anes - Eval Pre Procedure Procedure: Operation Date: 09/15/24 10:30 Proposed Procedures p Left Extracorporeal Shock Wave Lithotripsy - Jaime Charles MD Date/Time: 09/15/24 07:52 Pre Op Diagnosis: left kidney stones Patient Data Age: 38 Gender: F Height: 1.6 m Weight: 62 kg Allergies Allergy/AdvReac Type Severity Reaction Status Date / Time amoxicillin Allergy Intermediate Hives Verified 09/05/24 09:29 cefaclor (From Ceclor) Allergy Intermediate Hives Verified 09/05/24 09:29 Penicillins Allergy Intermediate Hives Verified 09/05/24 09:29 Home Medications ?Medication ?Instructions ?Recorded ?Confirmed ?Type multivitamin with iron-mineral 1 tablet PO DAILY 09/05/24 09/05/24 History Patient hx anesthesia problems: none Family hx anesthesia problems: none Results Review: All pre-operative results and documents have been reviewed as part of the pre- operative evaluation. [facility] Social History Social History Smoking status: Never smoker Alcohol intake: current Alcohol use details: 2 PER MONTH Living arrangements: with family Exam Day of Procedure 09/15/24 07:52 Patient weight: normal
[2024-09-15 08:37] LABS: BEDSIDEPREGUCG Negative (Negative)
[2024-09-15 08:59] LABS: Add Urine Microscopic? YES; Appearance Urine Clear (Clear); Bacteria Urine None Seen /hpf; Bilirubin Urine Negative (Negative); Blood Urine Trace (Negative); Color Urine Yellow (Yellow); Glucose Urine UA Negative (Negative); Ketones Urine Negative (Negative); Leukocyte Esterase Ur Negative LEU/UL (Negative); Nitrate Urine Negative (Negative); Non Pathogenic Casts 0-2; Protein Urine Negative (Negative); Squamous Epithelial Cell Urine None Seen /hpf (Few); Urobilinogen Urine 0.2 mg/dL (<2.0); WBC Urine 0-5 /hpf (0-3)
[2024-09-15] MEDS: LACTATED RINGERS 1,000 ML 30 ML IV CONT (09:00)
[2024-09-15 09:20] LABS: INR 0.9; Prothrombin Time 12.6 Seconds (11.1-14.7)
[2024-09-15 09:21] LABS: Partial Thromboplastin Time 23.6 Seconds (22.3-36.8)
[2024-09-15] MEDS: levoFLOXacin 500 MG/D5W 100 ML 500 MG/100 ML BAG 100 MG IVPB (10:18)
--- NOTE | 2024-09-15 10:33 | P.PNAN_ITS ---
Anes - Eval Final PreProcedure Day of Procedure 09/15/24 10:33 Patient weight: overweight Heart: regular rate and rhythm Lungs: clear to auscultation Airway: Mallampati scale class II Last oral intake: >/= 8 hours ASA classification: II Emergent: no Anesthetic plan: proceed Anesthesia type and monitoring: general LMA and standard monitoring Results Review: All pre-operative results and documents have been reviewed as part of the pre- operative evaluation. Informed Consent: The patient's anesthetic plan and its attendant risks and benefits were discussed with the patient/family/POA. Questions were solicited and answers provided to the satisfaction of the patient/family/POA.
--- NOTE | 2024-09-15 10:37 | P.OP_ITS ---
Procedure Note - Detailed Date of Procedure 09/15/24 Pre-op Diagnosis Left kidney stones Post-op Diagnosis Same Procedure Performed Surgeon Jaime Charles MD Anesthesia General Description of Procedure The patient was brought to the operative suite where she was placed in the supine position on the Dornier lithotripsy table. The focal point of the lithotripter was placed at 4 small stones in her left kidney. A total of 2500 shocks were delivered at a power setting of 4. There appeared to be good frag mentation of the stone. The patient tolerated the procedure well and was taken to the recovery room in good condition. Drains No Packing No Pathology None sent Complications No immediate complications
[2024-09-15] MEDS: ONDANSETRON INJ 4 MG/2 ML VIAL IV PUSH (11:43)
== END 2024-09-15 12:36 | disposition home or self-care (01) ==
PROVIDERS: Visit Provider Urology
PROC: (CPT 50590; principal; 2024-09-15 10:30)
DX: N20.0 Calculus of kidney (principal); Z79.891 Long term (current) use of opiate analgesic; Z80.51 Family history of malignant neoplasm of kidney; Z80.0 Family history of malignant neoplasm of digestive organs
CPT/HCPCS: 50590; 36415; 74018; 81001; 85610; 85730; J1100; J1956; J2003; J2250; J2405; J2704; J3010; J7120

== ENCOUNTER 2024-10-03 11:47 | Outpatient (CLI) | payer BC, SELFPAY ==
--- NOTE | ~2024-10-03 | XR_ITS ---
Supine and upright views of the abdomen Clinical history: Renal stone COMPARISON: 09/15/2024 Findings: Bowel gas pattern is nonspecific. No evidence for obstruction or free air. Suspected puncta te bilateral renal stones. Osseous structures are intact. Impression: Suspected punctate bilateral renal stones. Reviewed, dictated and finalized at [facility]. Impression: Suspected punctate bilateral renal stones.
--- OUTSIDE RECORDS SUMMARY | 2024-10-03 12:21 | XMS_ITS | Data Portability ---
Author Organization [facility] Address [address] [place] [address] Assessment No assessment recorded. Plan of Treatment [...] By Organization Details Last Modified Time 12/10/2022 [id number] A healthy lifestyle: care instructions [email or web address] Not available 12/10/2022 15:30:14 substance use disorder: care instructions [email or web address] Not available 12/10/2022 15:30:14 tobacco cessation [email or web address] Not availab le 12/10/2022 15:30:14 Following the [employer] Food Guide: Care Instructions [email or web address] Not available 12/10/2022 15:30:14 exercise program : getting started [email or web address] Not available 12/10/2022 15:30:14 Reason for Referral None Reported. Problems No Known Problems Procedures Surgical History Date Name Laterality Status Provider Name and Address Organization Details Recorded Time 11/25/2020 Date of Last Pap Smear completed Maria L Burton [facility] 12/08/2022 16:57:47 Imaging Results None recorded. Procedure Notes None recorded. Medical Equipment None Reported. Allergies Allergen ID Allergen Name Allergen Category Reaction Reaction Severity Criticality Documentation Date Start Date Code Code System Note Provider Name and Address Organization Details Recorded Time 970003 Product containin g penicilli n (product) medicatio n Not available Not available Not available 03/21/20212017 83153 8001 SNOMED Sever ity: Moder ate; Not Available [facility] 01:07:59 106020 Substance with sulfonami de structure and antibacte rial mechanism of action (substanc e) medicatio n Not available Not available Not available 03/21/20212017 57911 8003 SNOMED Sever ity: Moder ate; Not Available [facility] 01:07:59 796130 Medicinal product containin g cephalosp guy and acting as antibacte rial agent (product) medicatio n Not available Not available Not available 03/21/20212017 31297 9009 SNOMED Sever ity: Moder ate; Not Available [facility] 01:07:59 Medications Name Sig Start Date Stop Date [...] Updated DateTime 12/10/2022 157.48 cm 25.2 kg/m2 01914.75 g 110 mm[Hg] 72 mm[Hg] Maria L Burton [facility] 15:15:38 Social History Question Answer Notes LastModified by Organizat ion Details LastModified Time Tobacco Smoking Status Never Smoker Maria L Burton [facility] 12/10/2022 15:26:06 What Is Your Level Of Alcohol Consumption? Occasional [email or web address] Information not available 12/10/2022 How Many Years Have You Consumed Alcohol? 18 Information not available 12/10/2022 What Type Of Diet Are You Following? REGULAR [email or web address] Information not available 12/10/2022 Do You Or Have You Ever Used E-cigarettes Or Vape? Never Used Electronic Cigarettes [email or web address] Information not available 12/10/2022 How Many Children Do You Have? 2 [email or web address] Information not available 12/10/2022 What Is Your Relationship Status? [email or web address] Information not available 12/08/2022 Are You Sexually Active? Yes [email or web address] Information not available 12/08/2022 Sex: Unknown Functional Status Question Answer Note LastModified by Organization D etails LastModified Time What is your exercise level? Moderate [email or web address] Information not available 12/10/2022 Mental Status None recorded. Family History Relationship Description Onset Age of this Age Resolved Age Notes LastModified by Organization Details LastModified Time Father Renal cell carcinoma [place] [email or web address] Not available 12/10 15:25:59 Father Malignant neoplastic disease [email or web address] Not available 12/10 15:25:59 Father Hypertensive disorder [email or web address] Not available 12/10 15:25:59 Maternal Grandmother Cerebrovascu lar accident [email or web address] Not available 15:25:59 Medical History Condition Response Other Cancer N High Blood Pressure N Colon Cancer N Cytomegalovirus N Hyperthyroidism N MRSA N Blood Transfusion N Herpes (HSV) N Breast Cancer N Lung Cancer N Depression N Hypothyroidism N Incontinence N Panic Attacks N Neurological Disorder N Deep Vein Thrombosis N Anxiety Disorder N Autoimmune disease N Arthritis N Shingles N Tuberculosis/Positive PPD N Polycystic Ovarian Syndrome N Cervical Cancer N Hematuria N Chlamydia N Varicosities N Stroke N Seasonal allergies N Crohn's Disease N Alzheimer's/Dementia N COPD/Emphysema N Endometriosis N HPV/Genital Warts N IBS (Irritable Bowel Syndrome) N History of Abnormal Pap N High Cholesterol N Liver Disease N Fibromyalgia N Kidney Infection N Ulcer N Kidney Disease N HIV N Gallbladder disease N Sickle Cell Disease/Trait N Von Willebrand disease N ADD/ADHD N Eating Disorder N Anemia N Diabetes Mellitus (non-insulin dependent ) N Ovarian Problems N Multiple Sclerosis N Gonorrhea N Frequent Urinary Tract infections N Osteopenia N Headaches/migraines N GERD (reflux) N Ovarian Cancer N Diabetes (insulin dependent) N Seizures/Epilepsy N Fibroids N Heart Attack N Asthma N Lupus N Endometrial Cancer N Rubella N Blood Clotting Disorder N Bipolar Disorder N Diabetes Mellitus (during ) N Ulcerative Colitis N Hepatitis N Heart Disease N Pulmonary Embolism N RPR N Chicken Pox N Osteoporosis N Gynecological History Statement/Question Response [...] SNOMED-CT Code Diagnosis ICD10 Code Diagnosis Note [id number] LASHONDA Briones [facility] [address] [place] [address] 12/10/2022 15:12:36 12/10/2022 15:36:54 Gynecologic examination 84755352 Z01.419 37y.o. here for annual exam- Pap 11/25/20 Neg/HPV cotesting Discussed natural course of HPV infection, ASCCP guidelines . - Mammo at age 40, no increased risk -diet and exercise reviewed - RTO for annual or PRN Depression screening 171 386769 Z13.31 PHQ9: Negative. Pt educated on normal scoring. No further management needed. Health Concerns Section Related Observation LastModified by Organization Detai ls LastModified Time None Recorded Concern Status LastModified by Organization Details LastModified Time None Recorded Advance Directives Directive None Recorded Payers Encounter Date Sequence Insurance Name Policy Number Policy Noel Covered Member ID Noel Member ID Guarantor Name 12/10/2022 1 [place] [id number] Gerald Pearce [id number] Yola Pearce Notes Date Note Type [...] pap was 11/25/20 Neg/HPV Neg LASHONDA Briones [address] [facility], [place], [address] 12/10/2022 15:42:58 OBGyn Episode No OBEpisode recorded.
--- OUTSIDE RECORDS SUMMARY | 2024-10-03 12:21 | XMS_ITS | Data Portability ---
Author Organization [facility] Address [address] [place] [address] Assessment Encounter Date Assessment Date Assessment LastModified by Organization Details LastModified Time 03/10/2016 03/10/2016 Schedule punch biopsy [email or web address] Not available 03/10/2016 11:13:37 Plan of Treatment Reminders Order Date Submit Date Provider Last Modified By Organization Details Last Modified Time Details Appointments None recorded. Lab pathology study - inferior to the right breast line 2015 016 [facility], [address] [place] [address], [address], [place], [address], 6 04:29:59 Referral None recorded. Procedures None recorded. Surgeries None recorded. Imaging None recorded. Medication Orders Singulair 10 mg tablet 2015 016 [email or web address] [facility], [address], [place], [id number], 6 14:38:34 Patient TargetsNo targets recorded. Patient Instructions Encounter Date Encounter Id Patient Instructions Last Modified By Organization Details Last Modified Time 03/10/2016 [id number] seasonal allergies: care instructions [email or web address] Not available 03/11/2016 14:38:34 Reason for Referral None Reported. Results Created Date Observation Date Name Description Value Unit Range Abnormal Flag Note LastModifiedBy Organization Detail LastModifiedTime 03/23/20 16 04/02/2016 patho logy study . COMMEN T MATER IAL SUBMI TTED: . INFER IOR TO RIGHT BREAS T LINE Not Available [facility] ([facility]) [address] [facility], [place], [address], 04/02/2016 09:25:27 03/23/20 16 04/02/2016 patho logy study . COMMKIET T CLINI MARCELO PROVI DED ICD-1 0: D23.9 Not Available [facility] ([facility]) [address] [facility], [place], [address], 04/02/2016 09:25:27 03/23/20 16 04/02/2016 patho logy study . COMMEN T CLINI ANA MARIA HISTO RY: . INFER IOR TO THE RIGHT BREAS T LINE Not Available [facility] ([facility]) [address] [facility], [place], [address], 04/02/2016 09:25:27 03/23/20 16 04/02/2016 patho logy study . COMMKIET T DIAGN OSIS: DERMA OFIBR NAINA. TMZ/2015 Not Available [facility] ([facility]) [address] [facility], [place], [address], 04/02/2016 09:25:27 03/23/20 16 04/02/2016 patho logy study . COMMKIET T FRANNIE TRAN D: . LIZ PÉREZ MD, DERMA TOPAT HOLOG IST Not Available [facility] ([facility]) [address] [facility], [place], [address], 04/02/2016 09:25:27 03/23/20 16 04/02/2016 patho logy [...] A. /LMS LMS/L MS Not Available [facility] ([facility]) [address] [place], [address], 04/02/2016 09:25:27 03/23/20 16 04/02/2016 patho logy study . PALOMA T PATHO LOGIS T PROVI DED ICD-1 0: D24.1 Not Available [facility] ([facility]) [address] [place], [address], 04/02/2016 09:25:27 03/23/20 16 04/02/2016 patho logy study . PALOMA Andrea CPT . 13867 1 Not Available [facility] ([facility]) [address] [place], [address], 04/02/2016 09:25:27 Result Notes None recorded. Problems Name Problem SNOMED Code Status Onset Date Resolution Date Notes Provider Name and Address Organization Details Recorded Time Dermatofibrom a 582851449 Active Anni Rashida null, [place] - [facility] 6 14:28:55 Seasonal allergy 553936027 Active Anni Rashida [place], [place] - [facility] 6 14:28:55 Solitary cyst of breast 085267905 Active 2013 Not Available [facility] 7 00:43:48 Headache 93162281 Active 2011 Not Available [facility] 7 00:43:48 Acute sinusitis 46150033 Active 2015 Not Available Counts include [facility] beds at the [facility] 7 00:43:48 Notes:03/30/2012: *Denies an y medical problems Problem Notes None recorded. Procedures Surgical History Date Name Laterality Status Provider Name and Address Organization Details Recorded Time 03/20/2016 Punch Biopsy completed Anni Field [facility] 03/23/2016 15:53:45 Imaging Results None recorded. Procedure Notes None recorded. Medical Equipment None Reported. Allergies Allergen ID Allergen Name Allergen Category Reaction Reaction Severity Criticality Documentation Date Start Date Code Code System Note Provider Name and Address Organization Details Recorded Time 507602 Product containin g penicilli n (product) medicatio n hives Not available Not available 04/06/20172011 29579 8001 SNOMED React ion: hives ; Not Available Counts include 234 beds at the [facility] 7 10:17:11 84146 penicilli n V Not available Not available Not available Not available 03/10/2016 7984 RxNorm Leah Pulliam [facility], [facility] 6 10:56:18 32211 Ceclor medicatio n Not available Not available Not available 03/10/2016 59427 5 RxNorm Leah Pulliam null, [facility] 6 10:56:18 42005 Substance with sulfonami de structure and antibacte rial mechanism of action (substanc e) medicatio n Not available Not available Not available 03/10/2016 05919 8003 SNOMED Leah Pulliam [facility], [facility] 6 10:56:18 Medications Name Sig Start Date Stop Date [...] Details Last Updated DateTime 03/10/2016 161.29 cm 88304.96 0412 g 23.8 kg/m2 130 mm[Hg] 80 mm[Hg] Leah Pulliam [facility] 6 10:56:19 Date Recorded Body height Body weight Body mass index (BMI) Systolic blood pressure Diastolic blood pressure Provider Name and Address Organization Details Last Updated DateTime 03/20/2016 161.29 cm 65558.15 g 23.9 kg/m2 108 mm[Hg] 68 mm[Hg] Anni Field [facility] 6 14:26:15 Social History None recorded. Functional Status None recorded. Mental Status None recorded. Family History Nothing Reported. Medical History Condition Response Coronary Artery Disease N Other N High Blood Pressure N Atrial Fibrillation N Kidney or Bladder Problems N Thyroid Problems N GI Problems N Depression N COPD N Blood Clots N Skin Problems N Anemia N Heart Attack (HI) N Anxiety Disorder N Diabetes N Muscle, Joint, or Bone Problems N Seizures/Epilepsy N Acid Reflux (GERD) N Cancer N Stroke N Asthma N Allergies N High Cholesterol N Hepatitis N Liver Disease N Headaches N Heart Failure N Osteoporosis N Gynecological HistoryNo gynecological history recorded. Obstetrics History GPAL:G 0 P 0 0 0 0 Immunizations Vaccine Type Date Status Note Provider Nam e and Address Organization Details Recorded Time Influenza, split virus, quadrivalent, preservative 9 completed NEVILLE Clark [facility] 03/01/2019 12:49:21 Influenza, split virus, quadrivalent, PF 6 completed Anni finney [facility] 03/25/2016 14:29:24 Td (adult), 2 Lf tetanus toxoid, preservative free, adsorbed 8 completed Not Available [facility] 04/06/2017 10:17:31 Influenza, split virus, trivalent, preservative 5 completed Not Available [facility] 07/01/2019 02:11:45 Past Encounters Encounter ID Performer Location Encounter Start Date Encounter Closed Date Diagnosis/Indication Diagnosis SNOMED-CT Code Diagnosis ICD10 Code Diagnosis Note [id number] Torrey Pulliam MD [facility] [address] [place] [address] 03/10/2016 10:45:01 03/13/2016 10:30:53 Dermatofibroma 105760704 D23.9 Seasonal allergy 5721448 04 J30.2 [id number] Torrey Pulliam MD [facility] [address] [facility] [place] [address] 03/20/2016 17:04:11 03/26/2016 16:35:49 Dermatofibroma 115493945 D23.9 [id number] Torrey Pulliam MD [facility] [address] [facility] [address] 03/30/2016 13:47:04 03/31/2016 20:06:28 Dermatofibroma 976404485 D23.9 Health Concerns Section Related Observation LastModified by Organization Detai ls LastModified Time None Recorded Concern Status LastModified by Organization Details LastModified Time None Recorded Advance Directives Directive None Recorded Payers Encounter Date Sequence Insurance Name Policy Number Policy Noel Covered Member ID Noel Member ID Guarantor Name 03/10/2016 1 [place] [id number] 03/20/2016 1 [place] [id number] [id number] [facility] 03/30/2016 1 [place] [id number] [id number] [address] [place] [address] Notes Date Note Type Note Provider Name and Address Organization Details Recorded Time 03/10/2016 text/html Rash/Skin LesionReported bypatient.Location:c hest (under rt breast) Quality:not painful; stable Severity:mild Duration:has noted for >3 months Associated Symptoms:no fever; no nausea; no vomiting Torrey Pulliam MD Attn: Accounting,[address] [facility], [place], [address], [facility] 03/11/2016 10:59:38 03/20/2016 text/html patient presents today to have dermatofibroma removed from just right of the nipple line to the right outer Anni Rashida [place], [place] - [facility] 03/25/2016 14:34:49 OBGyn Episode No OBEpisode recorded.
--- OUTSIDE RECORDS SUMMARY | 2024-10-03 12:21 | XMS_ITS | Clinical Summary ---
Author Organization [facility] Address [address] [place] [address] Care Team Providers Care Transport Pilot Name Role Phone Ash Daley MD Primary Care Provider [phone] Social History Tobacco Use Types Packs/Day Years [...] age to complete this topic Care Teams Transport Pilot Relationship Specialty Start Date End Date Ash Daley MD [facility] [place] [phone] PCP - General 03/22/12
--- OUTSIDE RECORDS SUMMARY | 2024-10-03 12:22 | XMS_ITS | Data Portability ---
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 Plan of Treatment Reminders Order Date Submit Date Provider Last Modified By Organization Details Last Modified Time Details Appointments None recorded. Lab hepatitis panel (A+B+C), acute, serum 2024 025 [facility], [address] [place] [address], [address], 10:14:21 lipid panel, serum 2024 025 [facility], [address] [place] [address], [address], 11:07:21 CBC w/ auto diff 2024 025 [facility], [address] [place] [address], [address], 09:27:53 CMP, serum or plasma 2024 025 [facility], [address] [place] [address], [address], 10:55:13 Referral None recorded. Procedures None recorded. Surgeries None recorded. Imaging MAMMO, screening, bilateral 2024 025 [facility], [address] [place] [address] [address], [place], [address], 09:26:43 US, abdomen, complete 2024 025 [facility], [address], [address], [place], [address], 18:02:43 Medication Orders None recorded. Patient TargetsNo targets recorded. Patient InstructionsNo instructions recorded. Reason for Referral None Reported. Results Created Date Observation Date Name Description Value Unit Range Abnormal Flag Note LastModifiedBy Organization Detail LastModifiedTime 09/08/1909/07/2024 CBC WITH AUTOM ATED DIFF WBC 6.0 10 4.0-10 .0 Not Available [facility] [address] [place] [address], [address], 09/07/2024 09:27:52 09/08/1909/07/2024 CBC WITH AUTOM ATED DIFF RBC 4.55 10 3.90-5 .22 Not Available [facility] [address] [place] [address], [address], 09/07/2024 09:27:52 09/08/1909/07/2024 CBC WITH AUTOM ATED DIFF HGB 13.3 g/dL 11.2-1 5.7 Not Available [facility] [address] [place] [address], [address], 09/07/2024 09:27:52 09/08/1909/07/2024 CBC WITH AUTOM ATED DIFF HCT 41.9 % 34.1-4 4.9 Not Available [facility] [address] [place] [address], [address], 09/07/2024 09:27:52 09/08/1909/07/2024 CBC WITH AUTOM ATED DIFF MCV 92.1 fL 82.0-9 9.0 Not Available [facility] [address] [place] [address], [address], 09/07/2024 09:27:52 09/08/1909/07/2024 CBC WITH AUTOM ATED DIFF MCH 29.2 pg 29.0-3 4.5 Not Available [facility] [address] [place] [address], [address], 09/07/2024 09:27:52 09/08/19 25 09/07/2024 CBC WITH AUTOM ATED DIFF MCHC 31.7 g/dL 32.5-3 5.5 low Not Available [facility] [address] [place] [address], [address], 09/07/2024 09:27:52 09/08/19 25 09/07/2024 CBC WITH AUTOM ATED DIFF RDW 12.9 11.5-1 4.5 Not Available [facility] [address] [place] [address], [address], 09/07/2024 09:27:52 09/08/19 25 09/07/2024 CBC WITH AUTOM ATED DIFF platelet 361 10 180-37 0 Not Available [facility] [address] [place] [address], [address], 09/07/2024 09:27:52 09/08/19 25 09/07/2024 CBC WITH AUTOM ATED DIFF MPV 9.60 fL 9.0-12 .4 Not Available [facility] [address] [place] [address], 35[address], 09/07/2024 09:27:52 09/08/19 25 09/07/2024 CBC WITH AUTOM ATED DIFF michael% 66.6 % 34.0-7 1.1 Not Available [facility] [address] [place] [address], [address], 09/07/2024 09:27:52 09/08/19 25 09/07/2024 CBC WITH AUTOM ATED DIFF lym% 21.4 % 19-52 Not Available [facility] [address] [place] [address], [address], 09/07/2024 09:27:52 09/08/19 25 09/07/2024 CBC WITH AUTOM ATED DIFF mon% 7.50 % 5-13 Not Available [facility] [address] [place] [address], [address], 09/07/2024 09:27:52 09/08/1909/07/2024 CBC WITH AUTOM ATED DIFF eos% 3.50 % 0-6 Not Available [facility] [address] [place] [address], 70[address], 09/07/2024 09:27:52 09/08/1909/07/2024 CBC WITH AUTOM ATED DIFF bas% 0.80 % 0-2 Not Available [facility] [address] [place] [address], 288[address], 09/07/2024 09:27:52 09/08/1909/07/2024 CBC WITH AUTOM ATED DIFF Ig% 0.2 0-1.0 Not Available [facility] [address] [place] [address], 19407, 09/07/2024 09:27:52 09/08/1909/07/2024 CBC WITH AUTOM ATED DIFF michael# 4.01 10 1.5-7 Not Available [facility] [address] [place] [address], 55449, 09/07/2024 09:27:52 09/08/1909/07/2024 CBC WITH AUTOM ATED DIFF lym# 1.3 10 1.18-4 .00 Not Available [facility] [address] [place] [address], 790[address], 09/07/2024 09:27:52 09/08/1909/07/2024 CBC WITH AUTOM ATED DIFF mon# 0.5 10 0.00-0 .90 Not Available [facility] [address] [place] [address], 23776, 09/07/2024 09:27:52 09/08/1909/07/2024 CBC WITH AUTOM ATED DIFF eos# 0.2 10 0.00-0 .60 Not Available [facility] [address] [place] [address], 98747, 09/07/2024 09:27:52 09/08/19 25 09/07/2024 CBC WITH AUTOM ATED DIFF bas# 0.1 10 0.00-0 .10 Not Available [address], [address], 09/07/2024 09:27:52 09/08/19 25 09/07/2024 CBC WITH AUTOM ATED DIFF Ig# 0.01 0-0.05 Not Available [address], [address], 09/07/2024 09:27:52 09/08/19 25 09/07/2024 PTT APTT 25.6 secs 24.0-3 2.80 Not Available [address], [address], 09/07/2024 09:45:55 09/08/1909/07/2024 PROTI ME protime (PT) 9.8 secs 9.0-11 .5 Not Available [address], [address], 09/07/2024 09:45:56 09/08/1909/07/2024 PROTI ME INR 1.0 MICHELLE L RANGE FOR INR < OR = TO 1.0 (BRIAN ENTS NOT ON ANTIC OAGUL ANT THERA PY). INR THERA PEUTI C RANGE 2.0 - 3.0 PREVE NTION AND TREAT MENT OF DVT 2.5 - 3.5 PREVE NTION OF RECUR RENT MN, OR POST CARDI AC VALVE REPLA CEMEN T. Not Available [address], [address], 09/07/2024 09:45:56 09/08/1909/07/2024 LIPID PNL cholesterol 197 mg/dL 120-20 0 Not Available [address], [address], 09/07/2024 10:55:06 09/08/1909/07/2024 LIPID PNL triglyceride s 108 mg/dL 0-150. 0 Not Available [facility] [address] [place] [address], 050[address], 09/07/2024 10:55:06 09/08/19 25 09/07/2024 LIPID PNL HDL cholesterol 86 mg/dL 40-60 high Not Available [facility] [address] [place] [address], 17215, 09/07/2024 10:55:06 09/08/19 25 09/07/2024 LIPID PNL LDL 89.4 mg/dL 0-130 Not Available [facility] [address] [place] [address], 52059, 09/07/2024 10:55:06 09/08/19 25 09/07/2024 COMP METAB OLIC PNL glucose 97 mg/dL 74-100 Not Available [facility] [address] [place] [address], 65773, 09/07/2024 10:55:13 09/08/19 25 09/07/2024 COMP METAB OLIC PNL BUN 18 mg/dL 7-17 high Not Available [facility] [address] [place] [address], 26751, 09/07/2024 10:55:13 09/08/19 25 09/07/2024 COMP METAB OLIC PNL sodium 137 mmol/ L 136-14 5 Not Available [facility] [address] [place] [address], 98325, 09/07/2024 10:55:13 09/08/19 25 09/07/2024 COMP METAB OLIC PNL K 4.4 mmol/ L 3.5-5. 1 Not Available [facility] [address] [place] [address], 77125, 09/07/2024 10:55:13 09/08/19 25 09/07/2024 COMP METAB OLIC PNL chloride 102 mmol/ L 98-107 Not Available [facility] [address] [place] [address], 26927, 09/07/2024 10:55:13 09/08/19 25 09/07/2024 COMP METAB OLIC PNL tot CO2 27 mmol/ L 22-30 Not Available [facility] [address] [place] [address], [place], [address], 09/07/2024 10:55:13 09/08/19 25 09/07/2024 COMP METAB OLIC PNL calcium 9.6 mg/dL 8.6-10 .3 Not Available [facility] [address] [place] [address], [place], [address], 09/07/2024 10:55:13 09/08/19 25 09/07/2024 COMP METAB OLIC PNL creatinine 0.9 mg/dL 0.52-1 .04 Not Available [facility] [address] [place] [address], [place], [address], 09/07/2024 10:55:13 09/08/19 25 09/07/2024 COMP METAB OLIC PNL alkaline phos 48 U/L 38-126 Not Available [facility] [address] [place] [address], [place], [address], 09/07/2024 10:55:13 09/08/19 25 09/07/2024 COMP METAB OLIC PNL AST (SGOT) 26 U/L 14-36 Not Available [facility] [address] [place] [address], [place], [address], 09/07/2024 10:55:13 09/08/19 25 09/07/2024 COMP METAB OLIC PNL albumin 4.9 g/dL 3.3-5. 0 Not Available [facility] [address] [place] [address], [place], [address], 09/07/2024 10:55:13 09/08/19 25 09/07/2024 COMP METAB OLIC PNL globulin 3.3 2.0-4. 8 Not Available [facility] [address] [place] [address], [place], [address], 09/07/2024 10:55:13 09/08/19 25 09/07/2024 COMP METAB OLIC PNL total protein 8.2 g/dL 6.3-8. 2 Not Available [facility] [address] [place] [address], 67465, 09/07/2024 10:55:13 09/08/19 25 09/07/2024 COMP METAB OLIC PNL A/G ratio 1.5 0.7-3. 5 Not Available [facility] [address] [place] [address], 95690, 09/07/2024 10:55:13 09/08/19 25 09/07/2024 COMP METAB OLIC PNL ALT (SGPT) 16 U/L 0-35 Not Available [facility] [address] [place] [address], 82459, 09/07/2024 10:55:13 09/08/19 25 09/07/2024 COMP METAB OLIC PNL total bilirubin 0.5 mg/dL 0.2-1. 3 Not Available [facility] [address] [place] [address], 74719, 09/07/2024 10:55:13 09/08/1909/07/2024 COMP METAB OLIC PNL GFR >60 60- Refer ence Range : Chunky ge GFR Healt hy Adult : >60 [...] lator can be locat ed on the [facility] websi te: https ://[place] w.tia sara.o rg/pr ofess ional s/kdo qi/gf r_cal culat or Not Available [facility] [address] [place] [address], [address], 09/07/2024 10:55:13 09/08/19 25 09/07/2024 COMP METAB OLIC PNL agap 8.2 mmol/ L 5.0-19 .0 Not Available [facility] [address] [place] [address], [address]14, 09/07/2024 10:55:13 09/08/19 25 09/08/2024 PARAT HYROI D HORMO NE (PTH) INT PTH, intact 27 pg/mL 15-65 Not Available [facility] [address] [place] [address], [address]155, 09/08/2024 10:11:32 09/28/19 25 09/27/2024 US, abdom en, compl ete No observ ation record ed. [email or web address] [facility] [address] [place], [address], 09/28/2024 12:16:40 Result Notes None recorded. Problems Name Problem SNOMED Code Status Onset Date Resolution Date Notes Provider Name and Address Organization Details Recorded Time Hepatomegal y 47348940 Active 2024 FRANCHESCA SIERRA [address] [place], [address], [facility] 5 09:22:17 Recurrent kidney stone 7167779052655 102 Active 2024 FRANCHESCA SIERRA [address] [place], [address], [facility] 09:27:41 Problem Notes None recorded. Procedures Surgical History None recorded. Imaging Results Imaging Date Name Status LastModified by Organiz ation Details LastModified Time 09/27/2024 US, abdomen, complete completed [email or web address] [facility] [address] [place], [address], 09/28/2024 12:16:40 Procedure Notes None recorded. Medical Equipment None [...] and Address Organization Details Last Updated DateTime 5 77383.2 6 g 26.4 kg/m2 160.02 cm 97.3 [degF] 76 /min 98 % 98 % 110 mm[Hg] 70 mm[Hg] Janet Piper [facility] 09:09:12 Social History Question Answer Notes LastModified by Organizat ion Details LastModified Time Tobacco Smoking Status Never Smoker Janet Piper sharmin [facility] 09/06/2024 09:10:23 What Is Your Level Of [...] Recorded Time Tdap 03/15/2012 completed FRANCHESCA SIERRA [address] [place] [address], [address], [facility] 09/06/2024 09:25:44 Past Encounters Encounter ID Performer Location Encounter Start Date Encounter Closed Date Diagnosis/Indication Diagnosis SNOMED-CT Code Diagnosis ICD10 Code Diagnosis Note [id number] LILIAM STRICKLAND MD [facility] [address] [address] 09/06/2024 08:49:26 09/06/2024 09:25:16 Adult health examination 373030494 Z00.00 Encouraged healthy diet and exercise. Check labs. Schedule pap with gynecologi st. Update mammogram. Declines Tdap today. Hepatomegaly 57553878 R1 6.[address] scan. Check CMP and hepatitis panel and abdominal complete US. Screening mammography 24 647869 Z12.31 Recurrent kidney stone 7718154973 261384 N20.0 Following with urology. Scheduled for lithotrips y next week and undergoing stone analysis. Body mass index 25-29 - overweight 368830636 Z68.26 Health Concerns Section Related Observation LastModified by Organization Detai ls LastModified Time None Recorded Concern Status LastModified by Organization Details LastModified Time None Recorded Advance Directives Directive None Recorded Payers Encounter Date Sequence Insurance Name Policy Number Policy Noel Covered Member ID Noel Member ID Guarantor Name 09/06/2024 1 [employer] [id number] Gerald Pearce [id number] Yola Pearce Notes Date Note Type Note Provider Name and Address Organization Details Recorded Time 09/06/2024 text/html 38 year old alexis le here today to establish care and for ER follow up. Went to [facility] on 08/28/24 and diagnosed with kidney stone. Did pass this stone and took it to urologist and getting tested. Off flomax and [place]. Has some up in kidney so having lithotripsy next Wednesday for those.Dr. [facility].She was also noted to have hepatomegaly on CT scan and would like to discuss today.No abdominal pain. No nausea, vomiting, or diarrhea. 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 Works from home for [employer].Works out ever day, HIT, cardioTries to eat pretty healthy.Has 16 year old and 12 year old. FRANCHESCA SIERRA [address], [place], [address], [place] [facility] 09/06/2024 09:28:51 OBGyn Episode No OBEpisode recorded.
== END 2024-10-03 11:48 | disposition home or self-care (01) ==
LOC: ANHIMG 11:50
PROVIDERS: Visit Provider Urology
DX: N20.0 Calculus of kidney (principal)
CPT/HCPCS: 74018

== ENCOUNTER 2025-04-04 08:57 | Outpatient (CLI) | payer BC, SELFPAY ==
--- NOTE | ~2025-04-04 | XR_ITS ---
XR abdomen/kub 1V 04/04/2025 09:07 Indication: Kidney stones Procedure: KUB Comparison: 10/03/2024 Findings: There is a 2 mm left renal stone. Bowel gas pattern nonobstructive. Moderate colonic fecal loading. Lung bases unremarkable. No acute osseous abnormality. Impression: 1: Left nephrolithiasis. Reviewed, dictated and finalized at location O. ELIFT OPERATOR Impression: 1: Left nephrolithiasis.
--- OUTSIDE RECORDS SUMMARY | 2025-04-04 09:23 | XMS_ITS | Clinical Summary ---
Author Organization [facility] Address [address] [place] [address] Care Team Providers Care Lease Examiner Name Role Phone Ash Daley MD Primary Care Provider [phone] Social History Tobacco Use Types Packs/Day Years [...] of 3 - 19+ 3-dose series) 11/04/2002 HPV Vaccines (1 - 3-dose SCD M series) 11/04/2010 Cervical Cancer Screening Pa p with HPV Testing (Age 30 to 64) Every 5 Years 11/04/2013 Cervical Cancer Screening with HPV 11/04/2013 Mammogram Screening 2023 COVID-19 Vaccine (2024-2 6 season) 2025 Influenza Adult (#1) 2025 Hepatitis A Vaccines Aged Out No long er eligible based on patient's age to complete [...] age to complete this topic Care Teams Lease Examiner Relationship Specialty Start Date End Date Ash Daley MD [address] [place] [id number] PCP - General 03/22/12
== END 2025-04-04 08:58 | disposition home or self-care (01) ==
PROVIDERS: Visit Provider Urology
DX: N20.0 Calculus of kidney (principal)
CPT/HCPCS: 74018